=== PATIENT | male | born 1950 | race Caucasian/White ===

== ENCOUNTER 2024-08-02 14:23 | Emergency (ER) | payer MEDICARE, SELFPAY ==
[2024-08-02 14:50] VITALS: BP 160/77; PULSE 74; RESP 16; O2SAT 99
--- OUTSIDE RECORDS SUMMARY | 2024-08-02 17:14 | XMS_ITS | Referral Summary ---
Author Organization [facility] Address [address] [place] [address] Care Team Providers Care Social Insurance Administrator Name Role Phone Deon Carlton MD Primary Care Provider Unavaila ble Source Comments [facility],non-owned Affiliates and Associated Physician Practices is amultiple site organization consisting of ambulatory clinics and hospital sitesin [place], [place], [place] and [place]. This disclosure is being madepursuant to the Care Everywhere program and may not contain all information available regarding this patient. Last updated 18.[facility] Allergies Active Allergy Reactions Criticality Noted Date Comments Nsaids 03/31/2016 Immunizations Name Administration Dates Next Due INFLUENZA VACCINE, HIGH-DOSE , QUADR. (FLUZONE HIGH-DOSE QUADRIVALENT; 65Y+), 0.7 ML (HD-IIV4) 03/31/2016 Pneumococcal Pcv13 Conj 03/31/2016 Social History Tobacco Use Types Packs/Day Years Used Date Smoking Tobacco: Never Assessed Sex and Gender Information Value Date Recorded Sex Assigned at Not on file Gender Identity Not on file Sexual Orientation Not on file Plan of Treatment Not on file Care Teams Social Insurance Administrator Relationship Specialty Start Date End Date Deon Carlton MD PCP - General Internal Medicine 03/31/16
--- OUTSIDE RECORDS SUMMARY | 2024-08-02 17:14 | XMS_ITS | Clinical Summary ---
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
--- OUTSIDE RECORDS SUMMARY | 2024-08-02 17:14 | XMS_ITS | Encounter Summary ---
Author Organization [facility] Address 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
--- OUTSIDE RECORDS SUMMARY | 2024-08-02 17:14 | XMS_ITS | Encounter Summary ---
Author Organization [facility] Address 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
--- OUTSIDE RECORDS SUMMARY | 2024-08-02 17:14 | XMS_ITS | Encounter Summary ---
Author Organization [facility] Address 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
--- OUTSIDE RECORDS SUMMARY | 2024-08-02 17:14 | XMS_ITS | Encounter Summary ---
Author Organization [facility] Address 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
--- OUTSIDE RECORDS SUMMARY | 2024-08-02 17:14 | XMS_ITS | Patient Health Record ---
Author Organization [facility] Address [address] [place] [address] Care Team Providers Care Art Glass Setter Name Role Phone Deon Carlton Primary Care Provider Bill Brooke MD, [facility] [phone] ALLERGIES Allergen (clinical drug ingredient) Drug/Non Drug Allergy documented on EMR Reaction Allergy Type Onset Date Status Motrin Unknown Drug Allergy Active indomethacin Indomethacin Unknown Drug Allergy A ctive ibuprofen Ibuprofen Unknown Drug Allergy Active aspirin Aspirin Unknown Drug Allergy Active REASON FOR REFERRAL No Information MEDICATIONS Medication SIG (Take, Route, Fr equency, Duration) Notes Start Date End Date Status traMADol HCl Active metFORMIN HCl Active Atorvastatin Calcium Active Ezetimibe Active Onglyza Active Invokana Active Jardiance Active Ranitidine Active IMMUNIZATIONS Vaccine Route Administration Date Status Comme nts Influenza Unknown 05/15/2019 Administered pneumoccocal Unknown 11/13/2019 Refused SOCIAL HISTORY Tobacco Use: Social History Observation Description Date Details (start date - stop date) Never Smoker NA - NA Sex Assigned At : Social History Observation Description Sex Assigned At Unknown Tobacco Use: Question Answer Notes Patient is a: nonsmoker Alcohol screening: Question Answer Notes Did you have a drink containing alcohol in the p ast year? No Points 0 Interpretation Negative PROBLEMS Problem Type ICD Code Onset Dates Problem Status W/U Status Risk SNOMED Code Notes Problem Trigger finger, right middle finger (M65.331) Active confirmed 838526309 Problem Trigger finger, left middle finger (M65.332) Active confirmed [id number] Problem Trigger finger, right ring finger (M65.341) Active confirmed [id number] PLAN OF TREATMENT No Information Insurance Providers Payer Name Payer Address Payer Phone Subscriber Number Group Number Insured Name Patient Relationship to Insured Coverage Start Date Coverage End Date Medicare [address] [place] [address] [phone] [id number] Tyrel Kumari Self - patient is the insured [facility] [address] [place] [address] [id number] Tyrel Kumari Self - patient is the insured MEDICAL (GENERAL) HISTORY Medical History History ICD Code diabetes mellitus gastric ulcer Surgical History Surgery Date(Month/Year) left knee replacement right knee replacement
--- OUTSIDE RECORDS SUMMARY | 2024-08-02 17:14 | XMS_ITS | Patient Health Summary ---
Author Organization [facility] Address [address] [place] [address] Care Team Providers Care Electric Meter Setter Name Role Phone Deon Carlton MD Primary Care Provider Unavaila ble Note from [facility],non-owned Affiliates and Associated Physician Practices is amultiple site organization consisting of ambulatory clinics and hospital sitesin [place], [place], [place] and [place]. This disclosure is being madepursuant to the Care Everywhere program and may not contain all information available regarding this patient. Last updated 18.[facility] Allergies * Nsaids Immunizations * INFLUENZA VACCINE, HIGH-DOSE, QUADR. (FLUZONE HIGH-DOSE QUADRIVALENT; 65Y+), 0.7 ML (HD-IIV4)(Given 03/31/2016) * Pneumococcal Pcv13 Conj(Given 03/31/2016) Social History Tobacco Use Types Packs/Day Years Used Date Smoking Tobacco: Never Assessed Sex and Gender Information Value Date Recorded Sex Assigned at Not on file Gender Identity Not on file Sexual Orientation Not on file Care Teams Electric Meter Setter Relationship Specialty Start Date End Date Deon Carlton MD PCP - General Internal Medicine 03/31/16
--- OUTSIDE RECORDS SUMMARY | 2024-08-02 17:14 | XMS_ITS | Encounter Summary ---
Author Organization [facility] Address 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
--- OUTSIDE RECORDS SUMMARY | 2024-08-02 17:14 | XMS_ITS | Clinical Summary ---
Author Organization [facility] Address [address] [place] [address] Care Team Providers Care Custodial Foreman Name Role Phone Deon Carlton MD Primary Care Provider Unavaila ble Source Comments [facility],non-owned Affiliates and Associated Physician Practices is amultiple site organization consisting of ambulatory clinics and hospital sitesin [place], [place], [place] and [place]. This disclosure is being madepursuant to the Care Everywhere program and may not contain all information available regarding this patient. Last updated 18.[facility] Allergies Active Allergy Reactions Criticality Noted Date [...] Health Maintenance Due Date Last Done Comments COLOGUARD (AGES 45-75) - COL ON CA SCREENING 1950 COLON MONITORING 1950 COLONOSCOPY - COLON CA SCREENING 1950 CT COLONOGRAPHY - COLON CA SCREENING 1950 Colorectal Cancer Screening 1950 FIT - COLON CA SCREENING 1950 FLEX SIG - COLON CA SCREENING 1950 LIPID TESTING 1950 MEDICARE AWV 12 MONTHS 1950 HEPATITIS C SCREENING 07/11/1968 DTAP/TDAP/TD VACCINES (1 - Tdap) 1969 ZOSTER VACCINE (1 of 2) 2000 PNEUMOCOCCAL VACCINE 50+ (2 of 2 - PPSV23) 03/31/2017 03/31/2016 COVID-19 VACCINE (1 - 2023-2 5 season) 2024 INFLUENZA VACCINE (#1) 2024 03/31/2016 DEPRESSION SCREENING 06/18/2024 Respiratory Syncytial Virus (RSV) Vaccine Pt: or over 60 yrs (1 - 1-dose 75+ series) 2025 HEPATITIS B VACCINE Aged Out No longe r eligible based on patient's age to complete this topic HIB VACCINE Aged Out No longer eligi ble based on patient's age to complete this topic HPV VACCINE Aged Out No longer eligi ble based on patient's age to complete this topic MENINGOCOCCAL (Group B) VACCINE Aged Out No longer eligible based on patient's age to complete this topic MENINGOCOCCAL VACCINE Aged Out No ridge coty eligible based on patient's age to complete this topic Care Teams Custodial Foreman Relationship Specialty Start Date End Date Deon Carlton MD PCP - General Internal Medicine 03/31/16
--- OUTSIDE RECORDS SUMMARY | 2024-08-02 17:14 | XMS_ITS | Patient Health Record ---
Author Organization [facility] Address [address] [facility] [address] [facility]. [address] [place] [address] Care Team Providers Care Finishing Tunnel Operator Name Role Phone Brandt BRICENO, Deon Primary Care Provider Unavailabl e Reason For Referral No Information Problems Problem Type SNOMED Code ICD Code Onset Dates Problem Status W/U Status Risk Notes Problem [id number] Personal history of colonic polyps (Z86.010) Active confirmed Problem 259500694 Colonic diverticular disease (K57.30) Active confirmed Plan Of Treatment No Information Insurance Providers Payer Name Payer Address Payer Phone Subscriber Number Group Number Insured Name Patient Relationship to Insured Coverage Start Date Coverage End Date Medicare E2 [address] [address] [place] [address] [id number] Tyrel Kumari Self - patient is the insured 6 [place] Medicare Supplement E2 [address] [place] [address] [id number] Tyrel Kumari Self - patient is the insured 6
--- OUTSIDE RECORDS SUMMARY | 2024-08-02 17:14 | XMS_ITS | Encounter Summary ---
Author Organization [facility] Address 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
--- OUTSIDE RECORDS SUMMARY | 2024-08-02 17:14 | XMS_ITS | Encounter Summary ---
Author Organization [facility] Address 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
--- NOTE | 2024-08-02 17:21 | ED.GENADULT ---
HPI - General Adult General Chief complaint: Unspecified Stated complaint: facial swelling Time Seen by Provider: 08/02/24 16:52 History of Present Illness HPI narrative: [age] old male presents emergency department for evaluation for left-sided facial swelling. Patient states just started approximately 3 hours prior to arrival and has since improved he was waiting in the waiting room. Related Data Allergies Allergy/AdvReac Type Severity Reaction Status Date / Time aspirin Allergy Unknown Verified 08/02/24 16:45 ibuprofen Allergy Swelling Verified 08/02/24 16:45 levofloxacin (From Levaquin) AdvReac Intermediate Nausea and Verified 08/02/24 16:45 Vomiting Review of Systems Review of Systems: All systems reviewed & are unremarkable except as noted in HPI and below Exam Narrative: APPEARANCE: Well appearing, no pain, no distress, well-nourished. HEAD: normocephalic, atraumatic. Left-sided parotid swelling without erythema or tenderness to palpation EYES: PERRLA/EOMI, conjunctivae clear. NOSE: Normal no drainage EARS:TMS clear with good light reflex. THROAT: Pharynx clear, no exudate. NECK: Supple. No adenopathy, no masses. RESPIRATORY: Airway patent, respirations nonlabored. Clear to auscultation bilaterally, no rales, rhonchi, wheezing. CARDIOVASCULAR: Regular rate and rhythm without murmurs rubs or gallops. ABDOMINAL: Soft, nontender, nondistended, normal bowel sounds MUSCULOSKELETAL: Moves all extremities. Strength/ROM intact, No edema, No calf tenderness. NEURO: Alert. Cranial nerves II through XII intact. Good gait. Good coordination SKIN: Warm, dry. Normal Color Course Vital Signs Vital signs: Vital Signs Pulse Rate 74 08/02/24 14:50 Respiratory Rate 16 08/02/24 14:50 Blood Pressure 160/77 H 08/02/24 14:50 Pulse Oximetry 99 08/02/24 14:50 Pulse Rate 74 08/02/24 14:50 Respiratory Rate 16 08/02/24 14:50 Blood Pressure 160/77 H 08/02/24 14:50 Pulse Oximetry 99 08/02/24 14:50 Medical Decision Making Vital Signs Vital Signs: Vital Signs Pulse Rate 74 08/02/24 14:50 Respiratory Rate 16 08/02/24 14:50 Blood Pressure 160/77 H 08/02/24 14:50 Pulse Oximetry 99 08/02/24 14:50 Pulse Rate 74 08/02/24 14:50 Respiratory Rate 16 08/02/24 14:50 Blood Pressure 160/77 H 08/02/24 14:50 Pulse Oximetry 99 08/02/24 14:50 Discharge Plan Discharge Clinical Impression: Parotid gland enlargement Patient Disposition: Home, Self-Care Condition: Stable Instructions: Antibiotic Form, Parotid Duct Obstruction (ED) Additional Instructions: Continue your current antibiotic as directed and take an additional 3 days of the doxycycline. Have close follow-up with your primary care physician. I do recommend follow-up with ENT. If you have any worsening symptoms then please call or return to the emergency department. Patient Language: Icelandic Prescriptions: New doxycycline monohydrate 100 mg capsule 100 mg PO BID 5 Days Qty: 10 0RF Follow-up/Referrals: Jeremy Mayers MD [Physician] - UNKNOWN,DOCTOR [Primary Care Provider] -
== END 2024-08-02 17:34 | disposition home or self-care (01) ==
PROVIDERS: Emergency Provider Emergency Medicine
DX: K11.1 Hypertrophy of salivary gland (principal)
CPT/HCPCS: 99283